=== PATIENT | female | born 1960 | race Caucasian/White ===

== ENCOUNTER 2023-09-10 09:41 | Outpatient (AMB) | payer OTHER, SELFPAY ==
--- NOTE | 2023-09-10 10:09 | MHC.OFFWIV ---
Intake Vital Signs 09/10/23 10:17 Height 5 ft 1 in Weight 139 lb BMI 26.3 BP 112/72 Blood Pressure Location Lt brachial Position Sitting Respiration 14 Pulse 95 Pulse Source Pulse Oximeter Temp 98.1 F Temp Source Oral Pulse Oximetry (%) 98 Oxygen Delivery Method Room Air Intake Visit Reasons: strep throat Intake Note: Sore throat, temperature of 105 last night. sxs started yesterday morning. Chills and achy. 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 She states that her symptoms started yesterday with a sore throat, feeling achy, fevers and chills. Last night her temperature was a 101.5 degrees. She tells me that it feels like she has strep throat. No nausea, vomiting or diarrhea. No sinus pain or pressure. No cough, wheezing or shortness a breath. Her 5-year-old had strep last week and her older child had flu-like symptoms last week. She did recently have a uti 2 weeks ago and was on an unknown antibiotic. Stopped the antibiotics about a 1.5 weeks ago. She states that the UTI sx returned about 3 days ago. She states that she is also having some malorodous urine, dysuria and low back pain. No blood in the stool. No abdominal pain or flank pain. BP today is 112/74. [facility] Medical History (Updated 09/10/23 @ 10:41 by Le Jain PA-C) Hyperlipidemia Hypertension UTI symptoms Sore throat Social History Patient Tobacco Use Status: Current everyday Tobacco user Physical Exam Const Orientation/consciousness: patient oriented x3 HEENT Other: The posterior oropharynx is erythematous with exudates noted. Uvula is midline. Ears: hearing grossly normal bilaterally and TM's normal bilaterally General nose exam: Normal nasal mucous membranes and turbinates present Face and sinus: Yes sinuses nontender Neck Thyroid: Thyroid normal Lymphatic: lymphadenopathy (Tonsillar and Cervical anterior lymphadenopathy noted) Resp Auscultation: clear to auscultation bilaterally Cardio Rate: regular rate Rhythm: regular rhythm Heart sounds: S1 normal heart sound present and S2 normal heart sound present GI Inspection: Yes normal to inspection Palpation (GI): Soft to palpation and Other GI palpation findings present (nontender, no cva tenderness) Auscultation: normoactive bowel sounds Skin General skin exam: no rashes or lesions noted Neuro General: patient oriented x3, gait normal and no focal motor deficits Assessment & Plan Assessment & Plan (1) UTI symptoms: Code(s): R39.9 - Unspecified symptoms and signs involving the genitourinary system Plan: Urine dip and culture ordered. We will start Augmentin. We will follow up pending test results. (2) Strep throat: Code(s): J02.0 - Streptococcal pharyngitis Plan: Rapid strep positive. We will start Augmentin. Advised to discard toothbrush within 48-72 hours. Follow up if no improvement, symptoms return, or if anything worsens or changes. (3) Hypertension: Code(s): I10 - Essential (primary) hypertension Qualifiers: Hypertension type: primary hypertension Qualified Code(s): I10 - Essential (primary) hypertension Plan: Blood pressure WNL today. Continue current regimen. Advised to schedule appointment with PCP who is now over here. Orders: Orders AMB Rapid Strep Screen Today J02.9 - Acute pharyngitis, unspecified UA CC w/rflx Micro + Cult Today R39.9 - Unspecified symptoms and signs involving the genitourinary system Medications: New amoxicillin-pot clavulanate 875-125 mg 1 tab PO Q12H 10 days 20 tabs 0RF Coding Level of Care Code New Pt Level 3 (95852) Diagnoses UTI symptoms R39.9 Strep throat J02.0 Primary hypertension I10 Hypertension type: primary hypertension
[2023-09-10 10:17] VITALS: BP 112/72; PULSE 95; RESP 14; TEMP 36.7; O2SAT 98; BMI 26.3
== END 2023-09-10 12:35 | disposition home or self-care (01) ==
PROVIDERS: PCP Internal Medicine; Visit Provider Physician Assistant
DX: R39.9 Unspecified symptoms and signs involving the genitourinary system (principal); J02.0 Streptococcal pharyngitis; I10 Essential (primary) hypertension; J02.9 Acute pharyngitis, unspecified
CPT/HCPCS: 81002; 87880; 99203

== ENCOUNTER 2023-09-10 10:36 | Outpatient (REF) | payer OTHER, SELFPAY ==
[2023-09-10 14:14] LABS: Appearance Urine Clear; Color Urine Yellow; Glucose Urine UA Negative (Negative); Leukocyte Esterase Urine Moderate (2+) (Negative); Nitrite Urine Positive (Negative); UMIC TRIGGER UACC YES; Urine Blood Moderate (2+) (Negative); Urine Ketones Negative (Negative); Urine Protein Negative (Neg-Trace)
[2023-09-10 14:31] LABS: Bacteria Urine 4+ (None Seen); Calcium Oxalate Crystals Urine Present; Hyaline Casts Urine 0-2 /LPF (0-2); RBC Urine 0-2 /HPF (0-2); Squamous Epithelial Cell Urine 0-2 /HPF (0-2); UACC Culture Trigger YES; WBC Urine 0-5 /HPF (0-5)
== END 2023-09-10 10:37 | disposition home or self-care (01) ==
LOC: HO.LAB 10:36
PROVIDERS: Visit Provider Physician Assistant
DX: R39.9 Unspecified symptoms and signs involving the genitourinary system (principal); J02.9 Acute pharyngitis, unspecified
CPT/HCPCS: 81001; 87086; 87088; 87186

== ENCOUNTER → 2024-07-31 09:24 | Outpatient (AMB) | payer OTHER, SELFPAY ==
--- NOTE | 2024-07-31 09:39 | AM.OFFWIN_ITS ---
Intake Vital Signs 07/31/24 09:43 Height 5 ft 1 in Weight 160 lb BMI 30.2 BP 96/64 Blood Pressure Location Rt brachial Position Sitting Respiration 14 Pulse 95 Pulse Source Pulse Oximeter Temp 98 F Temp Source Oral Pulse Oximetry (%) 95 Oxygen Delivery Method Room Air Intake Visit Reasons: Flu like symptoms /sore throat Intake Note: Sore throat started last Sunday. Started fever, chill, aches, neck swelling started on Sunday. Patient Tobacco Use Status: Current everyday Tobacco user Allergies No Known Allergies Allergy (Verified 09/10/23 10:11) Medication List - Last Reconciled 07/31/24 by Franky Betancur MD amoxicillin 500 mg PO Q12H 10 days aspirin 81 mg PO DAILY cholecalciferol (vitamin D3) 25 mcg PO DAILY lisinopril 10 mg PO DAILY simvastatin 20 mg PO BEDTIME Do you need a note to return to daycare/school/sports/work: No HPI Flu like symptoms /sore throat HPI Details Patient?has?had?several?days?sore?throat?and?fevers [facility] Medical History (Updated 09/10/23 @ 10:41 by Le Jain PA-C) Hyperlipidemia Hypertension UTI symptoms Sore throat Social History Patient Tobacco Use Status: Current everyday Tobacco user Review of Systems Const Details: See HPI Physical Exam Vital Signs: Last Vital Signs Temp 98 F 07/31/24 09:43 Pulse 95 07/31/24 09:43 Resp 14 07/31/24 09:43 BP 96/64 07/31/24 09:43 Pulse Ox 95 07/31/24 09:43 Oxygen Delivery Method Room Air 07/31/24 09:43 BMI result Body Mass Index 30.2 Const Other: Patient?of?appears?mildly?ill General: no acute distress and well developed Nutritional Appearance: well nourished Orientation/consciousness: patient oriented x3 HEENT Other: Rather?severe?erythema?and?significant?patchy?exudates?in?posterior?pharynx. Lymphadenopathy?of?anterior?cervical?chain Head: Yes normocephalic and Yes atraumatic Eyes General: appearance normal, both eyes and all related structures Pupils: Equal, round and reactive pupils present EOM: EOMs intact bilaterally Resp Effort & Inspection: normal respiratory effort Neuro General: patient oriented x3 and gait normal Cranial nerves: Yes Equal, round and reactive pupils present Psych Affect: normal affect Assessment & Plan Assessment & Plan (1) Strep throat: Code(s): J02.0 - Streptococcal pharyngitis Plan: Severe?sore?throat?and?fevers. Anterior?cervical?chain?tenderness?and?swelling/lymphadenopathy No?cough Strep?positive?rapid?test Patient?has?strep?pharyngitis?and?I?am?sending?a?script?for?amoxicillin?500?mg?b .i.d.?times?10?days Finish?all?antibiotic?unless?there?is?a?problem.??Call?for?any?problems. Warm?saltwater?gargles Can?use?ibuprofen?or?Tylenol?for?discomfort Hydrate?well Get?rest Medications: New amoxicillin 500 mg PO Q12H 10 days 20 tabs 0RF Coding Level of Care Code Est Pt Level 3 (41993) Diagnoses Strep throat J02.0
[2024-07-31 09:43] VITALS: BP 96/64; PULSE 95; RESP 14; TEMP 36.6; O2SAT 95; BMI 30.2
== END ==
PROVIDERS: PCP Internal Medicine; Visit Provider Family Medicine
DX: J02.0 Streptococcal pharyngitis (principal); J02.9 Acute pharyngitis, unspecified

== ENCOUNTER → 2024-07-31 09:24 | Outpatient (BNVA) | payer OTHER, SELFPAY | PROVIDERS: PCP Internal Medicine | DX: J02.0 Streptococcal pharyngitis (principal) | CPT/HCPCS: 87880; 99212 ==

== ENCOUNTER 2024-09-22 15:10 | Outpatient (AMB) | payer OTHER, SELFPAY ==
--- NOTE | 2024-09-22 15:17 | A.OFFPC_ITS ---
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 Allergies No Known Allergies Allergy (Verified 09/22/24 15:20) Tobacco use date assessed: 09/22/24 Fall risk assessment: No Falls in past year Last assessed Fall Risk: 09/22/24 Dental Screening Dental Screen Date: 09/22/24 Did you have a dental visit in the last 12 months?: No Did you have a dental problem in the last 6 months where you did not have access to dental care?: No Was dental information given to patient?: Patient has dentist HPI HPI Comments History of Present Illness Details Patient is a 63-year-old female with a significant past medical history of hyperlipidemia, hypertension, vitamin-D deficiency [facility]. CV: On lisinopril 10mg daily, simvastatin 10mg daily, ASA 81mg daily. Stress testing 2021 reassuring. Denies chest pain GI: GERD. Frequent heartburn. Sometimes food is getting stuck-this is happening more and more recently. Denies abnormal weight loss Lots of stress has adopted 4.5, 6, and 12 year old with multiple medical issues. Recent pain/headache across occiput increases with rotation of head BP today is 112/74. Colonoscopy September 11, 2024-[address] [facility] Colonoscopy 06/11/2017 and was told 5 years ROS see HPI PHYSICAL EXAM: GENERAL: Alert and oriented x 3. NAD EYES: EOMI. Anicteric. HENT: Moist mucous membranes. No scleral icterus. No cervical lymphadenopathy. LUNGS: Clear to auscultation bilaterally. CARDIOVASCULAR: Regular rate and rhythm. No murmur. No JVD. ABDOMEN: Soft, non-tender +bs EXTREMITIES: No edema. Non-tender. SKIN: No rashes or lesions. Warm. NEUROLOGIC: No focal neurological deficits. CN II-XII grossly intact PSYCHIATRIC: Cooperative. 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 1. Little interest or pleasure in doing things: not at all 2. Feeling down, depressed, or hopeless: not at all 3. Trouble falling or staying asleep, or sleeping too much: not at all 4. Feeling tired or having little energy: several days 5. Poor appetite or overeating: several days 6. Feeling bad about yourself - or that you are a failure or have let yourself or your family down: not at all 7. Trouble concentrating on things, such as reading the newspaper or watching television: not at all 8. Moving or speaking so slowly that other people could have noticed. Or the opposite - being so fidgety or restless that you have been moving around a lot more than usual: not at all 9. Thoughts that you would be better off or of hurting yourself in some way: not at all Total score: 2 Depression Screening Interpretation: Negative Depression Screening Done: Yes 50250 - PHQ-9 Billing: Yes Source: Developed by Drs. Herbie Chavis, Analia Nj, Buster Aburto and colleagues, with an educational josé miguel from [employer]. Thrive Questionnaire Date Thrive assessed: 09/15/24 I am a: Patient What is your living situation today?: I have a steady place to live Within the past 12 months, did the food you bought not last and you didn't have the money to get more?: Never true Within the past 12 months, did you worry whether your food would run out before you got money to buy more?: Never true Do you have trouble paying for medicines?: No Do you have trouble getting transportation to medical appointments?: No Do you have trouble paying your heating and electricity bill?: No Do you have trouble taking care of your child, family member or friend?: No Do you have trouble with day-to-day activities such as bathing, preparing meals, shopping, managing finances, etc.?: No Are you currently unemployed and looking for a job?: No Are you interested in more education?: No Please select the resources that you would like help with: None Currently or been in a relationship where the following occur: I choose not to answer THRIVE Score: 0 AUDIT C Alcohol Use Questionnaire (AUDIT-C) 1. How often do you have a drink containing alcohol?: Monthly or less 2. How many drinks containing alcohol do you have on a typical day when you are drinking?: 1 or 2 3. How often do you have six or more drinks on one occasion?: Never Total Score: 1 NATASHA-7 AMB Questionnaire NATASHA-7 Date NATASHA - 7 assessed: 09/22/24 Feeling nervous, anxious, or on edge: 0 = Not at all Not being able to stop or control worryin = Not at all Worrying too much about different things: 0 = Not at all Trouble relaxin = Not at all Being so restless that it is hard to sit still: 0 = Not at all Becoming easily annoyed or irritable: 0 = Not at all Feeling afraid as if something awful might happen: 0 = Not at all Total NATASHA-7 score (0-4 normal; 5-9 mild; 10-14 moderate; 15-21 severe): 0 Source: Developed by Drs. Herbie Chavis, Analia Nj, Buster Aburto and colleagues, with an educational josé miguel from [employer]. NATASHA-7 Assessment Billing NATASHA-7 Assessment Tool: NATASHA-7 Assessment 53881 Physical exam (Primary Care) Vital Signs: Last Vital Signs Temp 98.5 F 09/22/24 15:23 Pulse 86 09/22/24 15:23 Resp 14 09/22/24 15:23 BP 122/82 09/22/24 15:23 Pulse Ox 98 09/22/24 15:23 Oxygen Delivery Method Room Air 09/22/24 15:23 BMI result Body Mass Index 31.6 Tobacco/Smoking Status: Tobacco use Status Tobacco use date assessed 09/22/24 09/22/24 15:25 Patient Tobacco Use Status Current everyday Tobacco 09/22/24 15:19 e-Cigarette/Vaping Use Never Used 09/22/24 15:25 PHQ-9: PHQ-9 Score PHQ-9: Total score 2 09/22/24 15:31 Depression Screening Interpretation: Negative Thrive Assessment: Date of Thrive Assessment Date Thrive assessed 09/15/24 09/22/24 15:19 Currently or been in a relationship where the following occur: I choose not to answer Coding Level of Care Code Est Pt Level 4 (03219) Diagnoses Primary hypertension I10 Hypertension type: primary hypertension Hyperlipidemia, unspecified hyperlipidemia type E78.5 Hyperlipidemia type: unspecified Cervicogenic headache G44.86 Heartburn R12 Additional Codes NATASHA-7 Assessment Billing - NATASHA-7 Assessment Tool: NATASHA-7 Assessment 31581 ([id number]) PHQ-9 - 57043 - PHQ-9 Billing: Yes ([id number]) Assessment & Plan Assessment & Plan (1) Hypertension: Code(s): I10 - Essential (primary) hypertension Category: Medical Qualifiers: Hypertension type: primary hypertension Qualified Code(s): I10 - Essential (primary) hypertension (2) Hyperlipidemia: Code(s): E78.5 - Hyperlipidemia, unspecified Category: Medical Qualifiers: Hyperlipidemia type: unspecified Qualified Code(s): E78.5 - Hyperlipidemia, unspecified (3) Cervicogenic headache: Code(s): G44.86 - Cervicogenic headache Category: Medical (4) Heartburn: Code(s): R12 - Heartburn Category: Medical Plan 64 year old to reestablish care Past medical, surgical, social and family history reviewed dysphagia-MBS ordered. referral to GI Mammo ordered Labs ordered Cervicogenic headache-xray ordered. She will do at [facility] Orders: Orders MM screening mammo BI 09/22/24 Z12.31 - Encounter for screening mammogram for malignant neoplasm of breast Lyme IgG/IgM w/reflex to WB 09/22/24 E78.5 - Hyperlipidemia, unspecified, G44.86 - Cervicogenic headache, I10 - Essential (primary) hypertension Lipid Panel 09/22/24 E78.5 - Hyperlipidemia, unspecified, G44.86 - Cervicogenic headache, I10 - Essential (primary) hypertension Comprehensive Met. Panel 09/22/24 E78.5 - Hyperlipidemia, unspecified, G44.86 - Cervicogenic headache, I10 - Essential (primary) hypertension FL Modified Barium Swallow 09/22/24 R12 - Heartburn, R13.10 - Dysphagia, unspecified XR cervical spine 4V 09/22/24 G44.86 - Cervicogenic headache Complete Blood Count Auto Diff 09/22/24 E78.5 - Hyperlipidemia, unspecified, G44.86 - Cervicogenic headache, I10 - Essential (primary) hypertension TSH reflex Free T4 09/22/24 E78.5 - Hyperlipidemia, unspecified, G44.86 - Cervicogenic headache, I10 - Essential (primary) hypertension Vitamin B12 and Folate 09/22/24 E78.5 - Hyperlipidemia, unspecified, G44.86 - Cervicogenic headache, I10 - Essential (primary) hypertension Referrals Gastroenterology Referral R12 - Heartburn, R13.10 - Dysphagia, unspecified
[2024-09-22 15:23] VITALS: BP 122/82; PULSE 86; RESP 14; TEMP 36.9; O2SAT 98; BMI 31.6
== END 2024-09-22 17:05 | disposition home or self-care (01) ==
LOC: HO.HMCFM 15:11
PROVIDERS: PCP Internal Medicine; Visit Provider Internal Medicine
DX: I10 Essential (primary) hypertension (principal); E78.5 Hyperlipidemia, unspecified; G44.86 Cervicogenic headache; R12 Heartburn

== ENCOUNTER → 2024-09-22 15:10 | Outpatient (BNVA) | payer OTHER, SELFPAY | PROVIDERS: PCP Internal Medicine; Visit Provider Internal Medicine | DX: Z76.89 Persons encountering health services in other specified circumstances (principal); I10 Essential (primary) hypertension; E78.5 Hyperlipidemia, unspecified; G44.86 Cervicogenic headache; R12 Heartburn; R13.10 Dysphagia, unspecified; Z79.82 Long term (current) use of aspirin; Z79.899 Other long term (current) drug therapy | CPT/HCPCS: 96127; 99212 ==

== ENCOUNTER 2024-12-17 10:19 | Outpatient (REF) | payer OTHER, SELFPAY ==
--- NOTE | ~2024-12-17 | FL_ITS ---
EXAMINATION: Modified Barium Swallow CLINICAL INFORMATION: Dysphagia. COMPARISON: None. TECHNIQUE: Modified barium swallow was performed under lateral fluoroscopy with patient in standing position. Different consistency of barium was administered by the speech therapist. FINDINGS: Patient was given numerous consistencies. There was no laryngeal penetration, or aspiration present. Examination was normal. FLUOROSCOPY TIME: 46 seconds Number of Spot Images: N/A DOSE AREA PRODUCT: 396.9 uGy-m2 (microgray-meter squared) FL/FL Modified Barium Swallow IMPRESSION: No evidence of laryngeal penetration or subglottic aspiration. Normal examination. Please refer to the full speech therapy report to follow for further detail. Electronically signed by: Khari Mc MD 12/17/2024 11:48 AM EDT RP
--- NOTE | 2024-12-17 13:09 | MHC.SL.IMP ---
Date of Plan of Treatment: 12/17/24 Onset of Symptoms/Illness: 09/23/24 Date Treatment Started: 12/17/24 Admitting Diagnosis: Dysphagia Primary Speech & Language Diagnosis: R13.14 Pharyngoesophageal Phase Dysphagia Reason for Today's Visit: 43551 Modified Barium Swallow Study Pre-evaluation Dietary Consistencies: Regular Pre-evaluation Liquid Consistency: Thin Pre-evaluation Medication Administration: Whole with Liquid Medical History: Modified Barium Swallow Study Fluoroscopic Evaluation of Swallowing Function CPT Code 97013 Evaluation Year: 2024 Reason for Study: Patient reporting difficulty swallowing. Referring Physician: Uzma Clifton MD Evaluating Clinician: Lynn Harmon MA, CCC-METER MECHANIC Study Number: 1 Patient Name: Ramila Ballard Status: Outpatient, Ambulatory Age: 64 Sex: Female Medical History Medical History Hyperlipidemia Hypertension UTI symptoms Sore throat Current (pre-evaluation) Intake/Diet: Route: PO Diet Grade: Regular Liquid Consistencies: Thin Pre-Study Functional Oral Intake Scale (FOIS): 7- Total oral intake with no restrictions Pain: None reported at time of study SUBJECTIVE: Patient is a 64 year old female referred for a modified barium swallow study by her primary care provider due to patient?s reports of having trouble swallowing. Patient reports onset a few months ago. It does not occur every time, but she intermittently experiences globus sensation just above the sternum with solids, even soft solids, but not liquids. Patient says it helps when she chews her food very finely and that it can be difficult to swallow water afterwards when she is having an episode. Notes from patient?s primary care indicate history of GERD and frequent heart burn. Oral Motor Exam Facial Symmetry: Symmetrical Mouth Occlusion: Normal Oral-Facial Teeth Characteristics: Intact/Normal Oral-Facial Smile (Lips) Description: Normal Oral-Facial Puff Cheeks Description: Normal Tongue Size: Normal Tongue Excursion Description: Normal Tongue Range of Movement Description: Normal Tongue Speed of Movement Description: Normal Tongue Strength of Movement (against opposing pressure): Normal Tongue Movement Characteristics: Normal/Absent Food and Liquid Trials: Oral Impairment: Lip Closure: 0=No labial escape Oral Impairment: Tongue Control During Bolus Hold: 1=Escape to lateral buccal cavity/floor of mouth (FOM) Oral Impairment: Bolus Preparation/Mastication: 0=Timely and efficient chewing and mashing Oral Impairment: Bolus Transport/Lingual Motion: 0=Brisk tongue motion Oral Impairment: Oral Residue: 1=Trace residue lining oral structures Oral Impairment:Initiation of Pharyngeal Swallow: 0=Bolus head at posterior angle of ramus (first hyoid excursion) Pharyngeal Impairment: Soft Palate Elevation: 0=No bolus between soft palate (SP)/pharyngeal wall (PW) Pharyngeal Impairment: Laryngeal Elevation: 0=Complete superior movement of thyroid cartilage (see description) Pharyngeal Impairment: Anterior Hyoid Excursion: 0=Complete anterior movement Pharyngeal Impairment: Epiglottic Movement: 0=Complete inversion Pharyngeal Impairment: Laryngeal Vestibular Closure:: 0=Complete: no air/contrast in laryngeal vestibule Pharyngeal Impairment: Pharyngeal Stripping Wave: 0=Present: complete Pharyngeal Impairment: Pharyngeal Contraction: Did not test Pharyngeal Impairment: Pharyngoesophageal Segment Openin=Complete distension and complete duration: no obstruction of flow Pharyngeal Impairment: Tongue Base (TB) Retraction: 0=No contrast between tongue base and posterior pharyngeal wall Pharyngeal Impairment: Pharyngeal Residue: 1=Trace residue within or on pharyngeal structures Pharyngeal Impairment: Esophageal Clearance Upright Position: Did not test Impressions and Recommendations OBJECTIVE: Time-out: performed at 10:45 Evaluation Start: 10:30; Stop: 10:35 Patient Positioning: Standing Viewing Planes: LATERAL ONLY Contrast: MBSImP? Standardized Protocol using commercially prepared, standardized Barium viscosities, including: Varibar? THIN LIQUID (40% w/v, <15 cps) , Varibar? PUDDING (40% w/v, <3020-3915 cps) , 1/2 Shortbread Cookie (1 x1 x.25 ) [facility] [id number] [facility] Results: Lip closure for intraoral bolus containment resulted in no labial escape. Tongue control during bolus hold allowed bolus escape to the lateral buccal cavity/floor of mouth. Bolus preparation and mastication resulted in timely and efficient chewing and mashing. Bolus transport/lingual motion was with brisk tongue motion. Oral residue was a trace, lining oral structures. Initiation of the pharyngeal swallow occurred as the bolus head reached the posterior angle of the mandibular ramus. Soft palate elevation resulted in no bolus between the soft palate and the pharyngeal wall. Laryngeal elevation demonstrated complete superior movement of the thyroid cartilage with complete approximation of the arytenoids to the epiglottic petiole. Anterior hyoid excursion demonstrated complete anterior movement. Epiglottic movement resulted in complete inversion. Laryngeal vestibular closure was complete, as indicated by no air or contrast within the laryngeal vestibule at the height of the swallow. Pharyngeal stripping wave was present and complete. Pharyngeal contraction could not be determined due to logistical reasons not related to physiologic impairment. Pharyngoesophageal segment opening was completely distended for complete duration with no obstruction of bolus flow. Tongue base retraction allowed no contrast between the retracted tongue base and the posterior pharyngeal wall. Pharyngeal residue was a trace within or on pharyngeal structures. Esophageal clearance in the upright position could not be assessed due to logistical reasons not related to physiologic impairment. Oral Impairment Score: 1 Pharyngeal Impairment Score: 0 (absence of score, component 13) Esophageal Impairment Score: --- (absence of score, component 17) Laryngeal Penetration and Aspiration: Neither penetration nor aspiration was observed in today's study with Cookie, Pudding-thick, Thin. ASSESSMENT: This exam was performed by the radiologist and the speech pathologist. Patient was standing for lateral view. She fed herself independently and trialed the following consistencies: Thin liquid (individual cup sips & rapid sequential cup sips) Puree (mixture applesauce w/ barium pudding) Regular (shortbread cookie coated w/ barium pudding) Good lip closure with no interlabial escape. There was some liquid escaping to the floor of mouth, but no posterior spillage from the oral cavity. Timely and efficient mastication. Bolus transport was also timely, with brisk posterior lingual movement. Trace lingual residue cleared with secondary swallow. Pharyngeal swallow trigger was timely. No evidence of nasopharyngeal reflux. Complete laryngeal elevation with complete epiglottic inversion and complete laryngeal vestibular closure. No evidence of aspiration or penetration during this exam. Complete pharyngeal clearance on regular solid. Very trace pooling in the valleculae and pyriforms seen on trials of liquids and puree, which cleared with subsequent swallows. No obstruction of flow through the UES. Liquid Intake Recommendation: Thin Liquid Intake Strategies: Unrestricted Dietary Recommendations: Regular Medication Administration: Whole with Liquid Please contact the pharmacy regarding appropriate crushable or liquid drug formulations that are available whenever modified delivery is recommended. Compensatory Strategies Recommended: Sitting Upright (90 deg), Small Bites and Sips, Rate of Ingestion Change Recommendation for Speech Therapy: NA:Typical Evaluation Text Comment: Intake Recommendations: Route: PO Diet Grade: Regular Liquid Consistencies: Thin Post-Study Functional Oral Intake Scale (FOIS): 7- Total oral intake with no restrictions No evidence of tracheal aspiration or penetration on trials of solids and liquids. Good oral and pharyngeal clearance. Overall, exam was unremarkable. Suggested Referrals: The patient might benefit from a referral to: Gastroenterology Indication for Referral: Patient c/o globus sensation, with MBSS showing complete pharyngeal clearance, note hx GERD Therapy Recommendations: Therapy will be discontinued, as patient?s swallow is deemed functional in the oral and pharyngeal phase. Patient may benefit from further workup w/ G.I. to further investigate patient?s complaints of globus sensation and difficulty swallowing solids. Clinician - Supplemental, Miscellaneous Communication: It is important to note MBSS objective studies are snapshots in time and Patient function might vary with factors such as time of day or concomitant medical conditions. For this reason, the final treatment plan for this patient should rest with their medical care team. Additional recommendations should be considered with the totality of the Patient in mind. Thank for the opportunity to participate in the care of this patient. If you have any questions about the content of this report, please contact the [facility] at [facility]. Education: Education regarding findings from today's study and plans for therapy were provided to Patient only through Verbal Instruction. Understanding was expressed by the Patient only. Position Clerk Clinician/Clinical Fellow: No Supervisory Statement: N/A Speech Language Pathologist: Lynn Harmon M.A., CCC-METER MECHANIC
== END 2024-12-17 10:20 | disposition home or self-care (01) ==
LOC: HO.XRAY 10:19
PROVIDERS: Visit Provider Internal Medicine
DX: R13.10 Dysphagia, unspecified (principal); R12 Heartburn
CPT/HCPCS: 74230; 92611

== ENCOUNTER → 2024-12-17 10:30 | Outpatient (BNV) | payer OTHER, SELFPAY | PROVIDERS: Visit Provider Radiology Diagnostic Radiology | DX: R13.10 Dysphagia, unspecified (principal) | CPT/HCPCS: 74230 ==

== ENCOUNTER 2025-04-02 10:21 | Outpatient (REF) | payer OTHER, SELFPAY ==
[2025-04-02 12:03] LABS: MANUAL DIFF FLAG NO
[2025-04-02 12:32] LABS: Hematocrit 39.7 % (37.0-47.0); Hemoglobin 12.8 g/dl (12.0-16.0); Imm Gran Abs Auto 0.02 X10*3/uL (0.00-0.03); Imm Gran Pct Auto 0.2 % (0.0-0.4); Lymphocytes Absolute Auto 3.0 X10*3/uL (1.2-4.9); Mean Corpuscular HGB Conc 32.2 g/dl (31.0-35.0); Mean Corpuscular Hemoglobin 29.0 pg (27.0-33.0); Mean Corpuscular Volume 89.8 fL (80.0-98.0); NRBC Abs Auto 0.000 X10*3/uL (0.0-0.012); NRBC Pct Auto 0.0 /100WBC (0.0-0.2); Platelet Count 271 X10*3/uL (160-400); Red Blood Count 4.42 X10*6/uL (4.20-5.50); White Blood Count 9.2 X10*3/uL (4.8-10.8)
[2025-04-02 13:22] LABS: Alanine Aminotransferase 22 U/L (0-31); Albumin Level 4.3 g/dL (3.5-5.0); Alkaline Phosphatase 96 U/L (39-117); Anion Gap 11 (12-20); Aspartate Amino Transferase 26 U/L (5-31); Blood Urea Nitrogen 16 mg/dL (9-16); Calcium 9.8 mg/dL (8.4-10.2); Carbon Dioxide 30 mmol/L (22-29); Chloride 105 mmol/L (96-108); Estimated Glomerular Filt Rate > 60; Potassium 3.8 mmol/L (3.3-5.1); Sodium 142 mmol/L (135-145); Total Protein 7.7 g/dL (6.5-8.0)
== END 2025-04-02 10:22 | disposition home or self-care (01) ==
LOC: HO.LAB 10:21
PROVIDERS: PCP Internal Medicine; Visit Provider Nurse Practitioner
DX: Z01.818 Encounter for other preprocedural examination (principal); R13.10 Dysphagia, unspecified; M85.80 Other specified disorders of bone density and structure, unspecified site
CPT/HCPCS: 36415; 80053; 85025; 99202

== ENCOUNTER 2025-04-02 10:21 | Outpatient (AMB) | payer OTHER, SELFPAY ==
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
[2025-04-02 10:35] VITALS: BP 128/67; PULSE 79; BMI 31.0
== END 2025-04-02 11:43 | disposition home or self-care (01) ==
LOC: HO.HGI 10:22
PROVIDERS: PCP Internal Medicine; Visit Provider Nurse Practitioner
DX: R13.10 Dysphagia, unspecified (principal); M85.80 Other specified disorders of bone density and structure, unspecified site
CPT/HCPCS: 99203

== ENCOUNTER 2025-05-04 10:32 | Outpatient (REF) | payer OTHER, SELFPAY ==
--- NOTE | ~2025-05-04 | MM_ITS ---
EXAMINATION: DXA BONE DENSITY AXIAL HISTORY: M85.80 - Other specified disorders of bone density and structure, unspecified... TECHNIQUE: Mimiboard Dual energy absorptiometry (DEXA) of the lumbar spine, total left hip, and femoral neck was performed. COMPARISON: There are no prior studies for comparison. FINDINGS: The bone mineral density of the lumbar spine is 0.774 g/cm2, corresponding to a T-score of -3.4, and a Z-score of -2.1. This is indicative of osteoporosis. The bone mineral density of the left total hip is 0.785 g/cm2, corresponding to a T-score of -1.8, and a Z-score of -0.8. This is indicative of osteopenia. The bone mineral density of the left femoral neck is 0.665 g/cm2, corresponding to a T-score of -2.7, and a Z-score of -1.4. This is indicative of osteoporosis. FRACTURE RISK: The FRAX index suggests a risk of major osteoporotic fracture of 13.7%, and of hip fracture 3.2%. MM/XR DEXA axial skeleton IMPRESSION: Based on bone mineral density, and according to World Health Organization (WHO) criteria, the diagnosis is consistent with osteoporosis. Statistically, 68% of repeat scans fall within 1 SD (+/- 0.010 g/cm2 for AP spine L1-L4) and 1 SD (+/- 0.012 g/cm2 for femur total) FRAX is a trademark of the [employer], a World Health Organization (WHO) Collaborating Center. Electronically signed by: Herbie Johnson MD 05/04/2025 11:19 AM [facility] [place]
== END 2025-05-04 10:33 | disposition home or self-care (01) ==
LOC: HO.MAMMO 10:32
PROVIDERS: PCP Internal Medicine; Visit Provider Nurse Practitioner
DX: M85.80 Other specified disorders of bone density and structure, unspecified site (principal)
CPT/HCPCS: 77080

== ENCOUNTER → 2025-05-04 10:45 | Outpatient (BNV) | payer OTHER, SELFPAY | PROVIDERS: PCP Internal Medicine; Visit Provider Radiology Diagnostic Radiology | DX: E28.39 Other primary ovarian failure (principal) | CPT/HCPCS: 77080 ==